=== PATIENT | male | born 1965 | race Caucasian/White ===

== ENCOUNTER 2017-07-31 13:30 | Emergency (ER) | payer OTHER ==
[2017-07-31 13:39] VITALS: BMI 39.4
[2017-07-31] MEDS ORDERED: Pantoprazole 40 MG in Sodium Chloride 0.9% 100 ML IV STA (13:48)
--- NOTE | 2017-07-31 13:54 | ED PDOC ---
Arrival/HPI - General Chief Complaint: Abdominal Pain Time Seen by Provider: 07/31/17 13:33 Historian: Patient - History of Present Illness Narrative History of Present Illness (Text): 07/31/17 13:50 A 53 year old male whose past medical history includes hypertension, presents to the emergency department with 1 year duration epigastric pain that has been worsening over the last 2-3 months. The patient states that the pain is intermittent, with no radiation, but relieved with anti-acids. He notes that over the past 2-3 months, he has had dyspnea on exertion. He denies any drug use, is a non- smoker, and occasional drinker. The patient denies denies fevers , chills, headache, dizziness, sore throat, cough, congestion, sore throat, chest pain, shortness of breath, abdominal pain, nausea, vomiting, diarrhea, neck pain, back pain, urinary/bowel changes, or any other complaints. Time/Duration: Other (1 year/ 2-3 months) Activities at Onset: Rest, Light Context: Home Associated Symptoms (Text): 07/31/17 14:15 Approximately one year history of burning epigastric pain with no radiation. Worse over the last several months. Dyspnea on exertion over the last several months. No nausea vomiting diarrhea constipation or GI bleeding. No weight loss. No genitourinary symptoms. No radiation of the pain. Improvement with antiacids. Past Medical History - Provider Review Nursing Documentation Reviewed: Yes - Infectious Disease Hx of Infectious Diseases: None - Cardiac Hx Hypertension: Yes - Psychiatric Hx Substance Use: No - Anesthesia Hx Anesthesia: No Family/Social History - Physician Review Nursing Documentation Reviewed: Yes Family/Social History: No Known Family HX Smoking Status: Never Smoked Hx Alcohol Use: Yes Frequency of alcohol use: Socially Hx Substance Use: No Allergies/Home Meds Allergies/Adverse Reactions: Allergies No Known Allergies Allergy (Unverified 07/31/17 13:48) Review of Systems - Physician Review All systems were reviewed & negative as marked: Yes - Review of Systems Constitutional: absent: Fatigue, Fevers, Night Sweats Respiratory: absent: SOB, Cough Cardiovascular: BRAN (For the past 2-3 months). absent: Chest Pain, Palpitations , Syncope Gastrointestinal: Abdominal Pain (Epigastric Abdominal Pain, worsening over the past 2-3 months.). absent: Stool Changes, Diarrhea, Nausea, Vomiting Genitourinary Male: absent: Dysuria, Frequency, Hematuria, Urinary Output Changes Musculoskeletal: absent: Back Pain, Neck Pain Neurological: absent: Headache, Dizziness Physical Exam Vital Signs Reviewed: Yes Vital Signs Temp Pulse Resp BP Pulse Ox 07/31/17 14:43 98.3 F 84 19 149/93 H 100 07/31/17 14:20 88 17 170/94 H 100 07/31/17 13:47 99.1 F 90 18 176/98 H 96 07/31/17 13:41 99.1 F 90 18 176/98 H 96 Temperature: Afebrile Blood Pressure: Hypertensive Pulse: Regular Respiratory Rate: Normal Appearance: Positive for: Well-Appearing, Non-Toxic, Comfortable, Other (Obese Male) Pain Distress: None Mental Status: Positive for: Alert and Oriented X 3, other (Comfortable) - Systems Exam Head: Present: Atraumatic, Normocephalic Pupils: Present: PERRL Extroacular Muscles: Present: EOMI Conjunctiva: Present: Normal Mouth: Present: Moist Mucous Membranes Pharnyx: No: ERYTHEMA, EXUDATE, TONSILS ENLARGED Neck: Present: Normal Range of Motion Respiratory/Chest: Present: Clear to Auscultation, Good Air Exchange. No: Respiratory Distress, Accessory Muscle Use Cardiovascular: Present: Regular Rate and Rhythm, Normal S1, S2. No: Murmurs Abdomen: Present: Normal Bowel Sounds. No: Tenderness, Distention, Peritoneal Signs Back: Present: Normal Inspection Upper Extremity: Present: Normal Inspection. No: Cyanosis, Edema Lower Extremity: Present: Normal Inspection. No: Edema Neurological: Present: GCS=15, CN II-XII Intact, Speech Normal, Motor Func Grossly Intact Skin: Present: Warm, Dry, Normal Color. No: Rashes Psychiatric: Present: Alert, Oriented x 3, Normal Insight, Normal Concentration Medical Decision Making ED Course and Treatment: 07/31/17 13:58 Impression: A 52 year old male presents to the emergency department with worsening epigastric pain for the last 2-3 months and dyspnea on exertion. Plan: -- EKG -- Chest X-ray -- Urinalysis -- Protonix -- Labs -- Reassess and disposition Progress Notes: 07/31/17 14:17 History of high blood pressure, but the patient does not take medications. 07/31/17 14:25 EKG shows normal sinus rhythm rate approximately [address] and T- wave changes and no acute changes Chest X-ray Dictator : Ozzie Neff MD Report Date : 07/31/2017 14:26:59 IMPRESSION:No active disease. Please note: No preliminary report/ innterpretation of this examination provided by emergency department personnel. 07/31/17 15:30: Discussed case with Dr. Allen 07/31/17 15:31 Discussed with . He will follow-up in the office next week Requests patient be started on metformin. Follow up in ER as needed. - Lab Interpretations Lab Results: 07/31/17 14:37 07/31/17 14:37 Lab Results 07/31/17 14:37: Sodium 140, Potassium 3.9, Chloride 102, Carbon Dioxide 27, Anion Gap 15, BUN 16, Creatinine 0.7 L, Est GFR ( Amer) > 60, Est GFR ( Non-Af Amer) > 60, Random Glucose 322 H*, Calcium 9.2, Total Bilirubin 0.4, AST 26, ALT 54, Alkaline Phosphatase 94, Lactate Dehydrogenase 494, Total Creatine Kinase 161, Troponin I < 0.01, NT-Pro-B Natriuret Pep 57.9, Total Protein 6.8, Albumin 4.3, Globulin 2.5, Albumin/Globulin Ratio 1.7, Lipase 76 07/31/17 14:37: Urine Color Light yellow, Urine Appearance Clear, Urine pH 6.0, Ur Specific Garrard 1.020, Urine Protein Negative, Urine Glucose (UA) >=1000, Urine Ketones Negative, Urine Blood Negative, Urine Nitrate Negative, Urine Bilirubin Negative, Urine Urobilinogen 0.2, Ur Leukocyte Esterase Negative 07/31/17 14:37: WBC 7.7, RBC 4.83, Hgb 14.4, Hct 41.6 L, MCV 86.1, MCH 29.8, MCHC 34.6, RDW 12.7, Plt Count 214, MPV 10.5, Gran % 60.0, Lymph % (Auto) 31.0, Catron % (Auto) 7.0 H, Eos % (Auto) 1.7, Baso % (Auto) 0.3, Gran # 4.64, Lymph # 2.4, Catron # 0.5, Eos # 0.1, Baso # 0.02 I have reviewed the lab results: Yes - RAD Interpretation Radiology Orders: 07/31/17 13:48 CHEST PORTABLE [RAD] Stat chest 1 view shows no infiltrate or effusion or cardiomegaly Derrick Boat Operator: ED Physician - EKG Interpretation Interpreted by ED Physician: Yes Type: 12 lead EKG - Medication Orders Current Medication Orders: Discontinued Medications Pantoprazole Sodium 40 mg/ (Sodium Chloride) 100 mls @ 400 mls/hr IV STAT STA Stop: 07/31/17 14:02 Last Admin: 07/31/17 14:40 Dose: 400 mls/hr eMAR Start Stop Document 07/31/17 14:40 [email or web address] (Rec: 07/31/17 14:40 [email or web address] [id number]) Intravenous Solution Start Date 07/31/17 Start Time 14:40 End Date 07/31/17 - Scribe Statement The provider has reviewed the documentation as recorded by the Rajiv Knight Provider Scribe Attestation: All medical record entries made by the Scribe were at my direction and personally dictated by me. I have reviewed the chart and agree that the record accurately reflects my personal performance of the history, physical exam, medical decision making, and the department course for this patient. I have also personally directed, reviewed, and agree with the discharge instructions and disposition. Disposition/Present on Arrival - Present on Arrival Any Indicators Present on Arrival: No History of DVT/PE: No History of Uncontrolled Diabetes: No Urinary Catheter: No History of Decub. Ulcer: No History Surgical Site Infection Following: None - Disposition Have Diagnosis and Disposition been Completed?: Yes Diagnosis: Hyperglycemia, Diabetes type 2, uncontrolled, Hypertension, Epigastric pain Disposition: HOME/ ROUTINE Disposition Time: 15:35 Patient Plan: Discharge Condition: GOOD Discharge Instructions (ExitCare): Diabetes Mellitus Type 2 in Adults (ED), Hypertension (ED), Epigastric Pain (ED) Prescriptions: MetFORMIN [glucoPHAGE] 1,000 mg PO QD7 #10 tab Referrals: PCP,NO [Primary Care Provider] - Follow up with primary Seman,Ramone Dias MD [Medical Doctor] - Follow up with primary Forms: [employer] (Azeri)
--- NOTE | 2017-07-31 14:28 | RAD ---
HISTORY: Chest pain. Portable study 14:00 COMPARISON: No prior. FINDINGS: LUNGS: No active pulmonary disease. PLEURA: No significant pleural effusion identified, no pneumothorax apparent. CARDIOVASCULAR: No radiographic findings to suggest acute or significant cardiovascular disease. OSSEOUS STRUCTURES: No significant abnormalities. VISUALIZED UPPER ABDOMEN: Normal. OTHER FINDINGS: None. IMPRESSION: No active disease. Please note: No preliminary report/ innterpretation of this examination provided by emergency department personnel.
[2017-07-31 14:44] VITALS: BP 149/93; RESP 19; TEMP 98.3
[2017-07-31 15:03] LABS: BASO # 0.02 K/mm3 (0.0-2.0); BASO % 0.3 % (0.0-3.0); EOS # 0.1 (0.0-0.7); EOS % 1.7 % (1.5-5.0); GRAN # 4.64 (1.4-6.5); HEMATOCRIT 41.6 % (42.0-52.0); LYMPH # 2.4 (1.2-3.4); MEAN CELL VOLUME 86.1 fl (80.0-105.0); MEAN CORPUSCULAR HEMOGLOBIN 29.8 pg (25.0-35.0); MEAN CORPUSCULAR HGB CONC 34.6 g/dl (31.0-37.0); MEAN PLATELET VOLUME 10.5 fl (7.0-11.0); MONO # 0.5 (0.1-0.6); RED CELL DISTRIBUTION WIDTH 12.7 % (11.5-14.5); WHITE BLOOD COUNT 7.7 10^3/ul (4.5-11.0)
[2017-07-31 15:04] LABS: URINE APPEARANCE CLEAR (CLEAR); URINE BILIRUBIN NEGATIVE (NEGATIVE); URINE BLOOD NEGATIVE (NEGATIVE); URINE COLOR LIGHT YELLOW (YELLOW); URINE GLUCOSE (UA) >=1000 mg/dL (NEGATIVE); URINE KETONE NEGATIVE (NEGATIVE); URINE LEUKOCYTE ESTERASE NEGATIVE Leu/uL (NEGATIVE); URINE PROTEIN NEGATIVE mg/dL (<30 mg/dL); URINE UROBILINOGEN 0.2 E.U./dL (<1 E.U./dL)
[2017-07-31 15:11] LABS: ALB/GLOB RATIO 1.7 (1.1-1.8); ALKALINE PHOSPHATASE 94 U/L (38-126); ALT/SGPT 54 U/L (7-56); AST/SGOT 26 U/L (17-59); BILIRUBIN,TOTAL 0.4 mg/dL (0.2-1.3); BLOOD UREA NITROGEN 16 mg/dL (7-21); CALCIUM 9.2 mg/dL (8.4-10.5); CARBON DIOXIDE 27 mmol/L (21-33); CHLORIDE 102 mmol/L (98-107); GFR AFRICAN-AMERICAN > 60; LIPASE 76 U/L (23-300); POTASSIUM 3.9 mmol/L (3.6-5.0); SODIUM 140 mmol/L (132-148); TOTAL PROTEIN 6.8 g/dL (5.8-8.3)
[2017-07-31 15:14] LABS: GLUCOSE,RANDOM 322 mg/dL (70-110)
[2017-07-31 15:32] LABS: TROPONIN I < 0.01 ng/mL
[2017-07-31 16:11] VITALS: PULSE 88; O2SAT 99
--- NOTE | 2017-08-01 19:54 | CARD ---
APPROVED REPORT EKG Measurement Heart [id number] <Conclusion> Normal sinus rhythm Nonspecific T wave abnormality Abnormal ECG
== END 2017-07-31 16:10 | disposition home or self-care (01) ==
LOC: ED 13:30
DX: I10 Essential (primary) hypertension (principal); E11.65 Type 2 diabetes mellitus with hyperglycemia; R10.13 Epigastric pain
CPT/HCPCS: 71010; 80053; 81003; 82550; 83615; 83690; 83880; 84484; 85025; 93005; 96374; 99284; C9113